=== PATIENT | female | born 1990 | race Asian ===

== ENCOUNTER 2019-05-13 04:54 | Observation (INO) | payer SELFPAY ==
[2019-05-13] MEDS ORDERED: Ondansetron INJ* 2 MG/ML VIAL IV ONE (05:02)
[2019-05-13] MEDS ORDERED: NS 0.9% 1000 ML** 1,000 ML IV ONE (05:02)
[2019-05-13] MEDS ORDERED: Ketorolac INJ* 30 MG/ML 1 ML VIAL IV PUSH ONE (05:02)
[2019-05-13] MEDS ORDERED: Morphine 4 MG/ML VIAL (1 ml) 4 MG/ML VIAL IV ONE ×4 (05:02→06:45)
--- NOTE | 2019-05-13 05:04 | ED ---
Abdominal Pain/Female - HPI Summary HPI Summary: The patient is a 28 y/o F arriving by ambulance to [facility] with a chief complaint of sudden onset sharp abdominal pain onset at 0400 this morning. She reports that the LLQ pain woke her up from her sleep and has been accompanied by nausea and vomiting. Currently, her symptoms are rated 10/10 in severity. She is currently 6 weeks and has not had blood work confirmation of . She denies any vaginal bleeding. A0. No PMHx. Nonsmoker, no EtOH, no substance use. Medications reviewed. Allergies noted. - History of Current Complaint Stated Complaint: ABD PAIN PER EMS Time Seen by Provider: 05/13/19 04:58 Hx Obtained From: Patient Onset/Duration: Sudden Onset, Lasting Minutes - since 0400, Still Present Timing: Minutes Severity Initially: Severe Severity Currently: Severe Pain Intensity: 10 Pain Scale Used: 0-10 Numeric Location: Discrete At: LLQ Radiates: No Character: Sharp Aggravating Factor(s): Nothing Alleviating Factor(s): Nothing Associated Signs and Symptoms: Positive: Nausea, Vomiting. Negative: Vaginal Bleeding Allergies/Adverse Reactions: Allergies Allergy/AdvReac Type Severity Reaction Status Date / Time No Known Allergies Allergy Verified 05/13/19 04:58 Home Medications: Home Medications Formula Tablet 1 tab PO DAILY 05/13/19 [History Confirmed 05/13/19] PMH/Surg Hx/FS Hx/Imm Hx Endocrine/Hematology History: Denies: Hx Diabetes Sensory History: Denies: Hx Deafness Opthamlomology History: Denies: Hx Legally Blind EENT History: Denies: Hx Deafness - Surgical History Surgical History: None Surgery Procedure, Year, and Place: none Infectious Disease History: No Infectious Disease History: Denies: Traveled Outside the [place] in Last 30 Days - Family History Known Family History: Negative: Diabetes - Social History Alcohol Use: None Hx Substance Use: No Substance Use Type: Reports: None Hx Tobacco Use: No Smoking Status (MU): Never Smoked Tobacco Review of Systems Positive: Abdominal Pain - LLQ, Vomiting, Nausea Positive: other - Negative: vaginal bleeding. All Other Systems Reviewed And Are Negative: Yes Physical Exam - Summary Physical Exam Summary: Appearance: Well-nourished, Colickly, Uncomfortable-appearing woman, In obvious discomfort, Vital signs noted to be unremarkable Skin: Warm, dry, no obvious rash Eyes: sclera anicteric, no conjunctival pallor ENT: mucous membranes moist, pharynx appears normal Neck: Supple, nontender Respiratory: Clear to auscultation, no signs of respiratory distress Cardiovascular: Normal S1, S2. No murmurs. Normal distal pulses in tibial and radial bilaterally. Abdomen: Soft, Diffuse abdominal tenderness likely secondary to patient apprehension, No rebound or guarding, normal active bowel sounds present Musculoskeletal: Normal, Strength/ROM Intact Neurological: A&Ox3, awake and alert, mentation is normal, speech is fluent and appropriate Psychiatric: affect is normal, does not appear anxious or depressed Triage Information Reviewed: Yes Vital Signs Reviewed: Yes Diagnostics - Laboratory Result Diagrams: 05/13/19 05:22 05/13/19 05:22 Lab Statement: Any lab studies that have been ordered have been reviewed, and results considered in the medical decision making process. Re-Evaluation - Re-Evaluation First Eval Re-Evaluation Time: 05:27 Change: Unchanged Comment: Pt continues to be in pain. Second Eval Re-Evaluation Time: 05:45 Change: Unchanged Comment: Pt continues to be in pain. Third Eval Re-Evaluation Time: 06:14 Change: Unchanged Comment: Pt continues to be in pain. Fourth Eval Re-Evaluation Time: 06:45 Change: Unchanged Comment: Pt continues to be in pain. Results and plan discussed with pt. Abdominal Pain Fem Course/Dx - Course Course Of Treatment: Pt is a 28 y/o F with cc of sudden onset severe LLQ pain beginning an hour [employer] accompanied by nausea and vomiting. First at 6 weeks confirmed by her doctor. Upon physical exam, the pt appears to be colickly and uncomfortable in obvious discomfort with unremarkable vital signs exhibiting diffuse abdominal tenderness secondary to pt apprehension without rebound or guarding. In the ED course, the pt was administered fluids, Zofran, Morphine, and Ketorolac. Blood work reveals hgb 11.8, MCV 79, MCH 26, carbon dioxide 19, BUN/Creatinine 23.2, glucose 114, and [place] [address]. Transvaginal US will be ordered. Pts pain continues and is given additional Morphine totaling 20mg. Radiology reports possibility of ovarian torsion previous to official report. I consulted with Dr. Foote, [employer], who will come see the pt in the ED. The patient is a sign-out from Dr. Mt Montaño MD, to Dr. Alan Ramos MD, at change of shift at 0700 on 05/13/19, pending Transvaginal US results, [employer] consult in ED, and disposition. Patient is a sign-out to Dr. Alan Ramos MD, at change of shift 0700 on 05/13/19, pending Transvaginal US, [employer] consultation in ED, and disposition. - Diagnoses Differential Diagnosis: Positive: Other - ovarian torsion, corpus luteum cyst, kidney stone Provider Diagnoses: Ovarian torsion - Provider Notifications Discussed Care Of Patient With: Jean Foote - [employer] Time Discussed With Above Provider: 06:48 Instructed by Provider To: Other - I discussed pt's case with Dr. Foote, and he will come see the pt in the ED. Discharge ED - Sign-Out/Discharge Documenting (check all that apply): Sign-Out Patient Signing out patient TO: Alan Ramos Patient Received Moderate/Deep Sedation with Procedure: No - Discharge Plan Condition: Stable Disposition: ADMITTED TO [facility] - Billing Disposition and Condition Condition: STABLE Disposition: Admitted to [facility] - Attestation Statements Document Initiated by Franklin: Yes Documenting Scribe: Astrid Clarke Provider For Whom Franklin is Documenting (Include Credential): Dr. Mt Montaño MD Scribe Attestation: Astrid Morris scribed for Dr. Mt Montaño MD on 05/14/19 at 0658. Scribe Documentation Reviewed: Yes Provider Attestation: The documentation as recorded by the Astrid cornejo accurately reflects the service I personally performed and the decisions made by me, Dr. Mt Montaño MD Status of Scribe Document: Viewed
[2019-05-13 05:30] LABS: ABS Basophils 0.1 10^3/ul (0-0.2); ABS Eosinophils 0.3 10^3/ul (0-0.6); ABS Lymphocytes 2.4 10^3/ul (1.0-4.8); ABS Monocytes 0.7 10^3/ul (0-0.8); ABS Neutrophils 6.9 10^3/ul (1.5-7.7); Eosinophil % 2.8 %; Hematocrit 36 % (35-47); Hemoglobin 11.8 g/dL (12.0-16.0); Lymphocyte % 23.2 %; Mean Corpuscular HGB Conc 33 g/dL (31-36); Mean Corpuscular Hemoglobin 26 pg (27-31); Mean Corpuscular Volume 79 fL (80-97); Mean Platelet Volume 8.2 fL (7.4-10.4); Nucleated Red Blood Cells % 0.1; Platelet Count 229 10^3/uL (150-450); Red Blood Count 4.51 10^6 /uL (3.70-4.87); Red Cell Distribution Width 14 % (10-15); White Blood Count 10.3 10^3/uL (3.5-10.8)
[2019-05-13 05:47] LABS: Albumin 3.7 g/dL (3.2-5.2); Albumin/Globulin Ratio 1.8 (1-3); BUN/Creatinine Ratio 23.2 (8-20); Calcium 8.6 mg/dL (8.6-10.3); EGFR African American 122.6 (>60); EGFR Non-African American 101.3 (>60); Globulin 2.1 g/dL (2-4); Potassium 3.7 mmol/L (3.5-5.0); Total Bilirubin 0.5 mg/dL (0.2-1.0); Total Protein 5.8 g/dL (6.4-8.9)
[2019-05-13] MEDS ORDERED: Morphine 4 MG/ML VIAL (1 ml) 4 MG/ML VIAL IV PRN (06:14)
--- NOTE | 2019-05-13 07:16 | ED ---
Progress - Progress Note Progress Note: Patient is a sign out upon shift change at 0700 on 05/13/[address] Montaño to Dr. Ramos. Patient is pending RO[facility] consult from Dr. Foote as well as Transvaginal US results and disposition. - Results/Orders Results/Orders: Transvaginal Ultra Sound reveals, per radiologist, 1. Concern for left ovarian torsion given the abnormal size, grayscale appearance and position of the left ovary. No reliable arterial or venous waveforms could be detected on this side. 2. Early intrauterine with an estimated gestational age of 6 weeks 5 days. ED Physician has reviewed this report. Re-Evaluation - Re-Evaluation First Eval Comment: Pt continues to be in pain. Course/Dx - Course Course Of Treatment: Patient is a sign out upon shift change at 0700 on 05/13/[address] Montaño to Dr. Ramos. Patient is pending ROAD CUTTER consult from Dr. Foote as well as Transvaginal US results and disposition. At 724 Dr. Ramso consulted with Dr. Foote about patient. Dr. Foote recommends that patient be admitted and brought to the OR. Transvaginal Ultra Sound reveals, per radiologist, 1. Concern for left ovarian torsion given the abnormal size, grayscale appearance and position of the left ovary. No reliable arterial or venous waveforms could be detected on this side. 2. Early intrauterine with an estimated gestational age of 6 weeks 5 days. ED Physician has reviewed this report. . This patient was signed out to Dr. Rivera at shift change. The patient is awaiting for Dr. Todd from RO[facility] pulses the patient. He came and assessed the patient and he is going to take the patient to the dalal. The patients hemoglobin after stable alert and oriented 3. - Diagnoses Provider Diagnoses: Ovarian torsion - Provider Notifications Discussed Care Of Patient With: Jean Foote - Obstetrics and Gynecology Time Discussed With Above Provider: 07:25 Instructed by Provider To: Other - 724 Dr. Ramos consulted with Dr. Foote about patient. Dr. Foote recommends that patient be admitted and brought to the OR. Discharge ED - Sign-Out/Discharge Documenting (check all that apply): Patient Departure - admitted, Receiving Sign -Out - Patient is a sign out upon shift change at 0700 on 05/13/[address] Montaño to Dr. Ramos. Patient is pending ROAD CUTTER consult from Dr. Foote as well as Transvaginal US results and disposition. Signing out patient TO: Alan Ramos - ED Physician Receiving patient FROM: Mt Montaño - ED Physician Patient Received Moderate/Deep Sedation with Procedure: No - Discharge Plan Condition: Stable Disposition: ADMITTED TO [facility] - Billing Disposition and Condition Condition: STABLE Disposition: Admitted to [facility] - Attestation Statements Document Initiated by Franklin: Yes Documenting Scribe: Margarita Wheeler Provider For Whom Franklin is Documenting (Include Credential): Dr. Alan Ramos MD Scribe Attestation: Margarita Morris scribed for Dr. Alan Ramos MD on 05/21/19 at 1200. Scribe Documentation Reviewed: Yes Provider Attestation: The documentation as recorded by the Margarita cornejo accurately reflects the service I personally performed and the decisions made by me, Dr. Alan Ramos MD Status of Scribe Document: Viewed
[2019-05-13] MEDS ORDERED: fentaNYL* 50 MCG/ML 2 ML VIAL (100 MCG VIAL) ONE (07:42)
[2019-05-13] MEDS ORDERED: KETAMINE HCL* 50 MG/ML 10 ML VIAL ONE (07:42)
[2019-05-13] MEDS ORDERED: Atracurium* 10 MG/ML 10 ML VIAL ONE (07:42)
[2019-05-13] MEDS ORDERED: ceFOXitin 2 GM IVPREMIX* 2 GM/50 ML BAG ONE (08:00)
[2019-05-13] MEDS ORDERED: oxyCODONE TAB* 5 MG TAB PO PRN (08:42)
[2019-05-13] MEDS ORDERED: Naloxone* 0.4 MG/ML 1 ML VIAL IV PRN (08:42)
[2019-05-13] MEDS ORDERED: HYDROmorphone INJ1* 1 MG/ML SYRINGE IV PRN (08:42)
[2019-05-13] MEDS ORDERED: fentaNYL* 50 MCG/ML 2 ML VIAL (100 MCG VIAL) IV PRN (08:42)
[2019-05-13] MEDS ORDERED: Scopolamine 1.5 mg* PATCH TRANSDERM PRN (08:42)
[2019-05-13] MEDS ORDERED: Dexamethasone IV* 4 MG/ML 1 ML (4 MG) ONE (08:58)
[2019-05-13] MEDS ORDERED: Glycopyrrolate IV* 0.2 MG/ML 1 ML VIAL ONE (08:58)
[2019-05-13] MEDS ORDERED: Neostigmine Methylsulfate* 1 MG/ML 10 ML VIAL (1 mg/ml) ONE (08:58)
[2019-05-13] MEDS ORDERED: EPHEDrine (Pressors)* 50 MG/ML VIAL ONE (08:58)
[2019-05-13] MEDS ORDERED: Propofol* 10 MG/ML 20 ML BTL ONE (08:58)
[2019-05-13] MEDS ORDERED: oxyCODONE/Acetamin 5/325 MG* TAB PO PRN (09:33)
[2019-05-13] MEDS ORDERED: Bupivacaine 0.5%* 50 ML MDV VIAL ONE (09:47)
[2019-05-13] MEDS: Lactated Ringers 1000 ML Bag* 1,000 ML IV SCH ×3 (10:56→22:59)
[2019-05-13] MEDS ORDERED: Progesterone MICRONIZED(NF) 200 MG CAP PO SCH (14:00)
[2019-05-14] MEDS: Lactated Ringers 1000 ML Bag* 1,000 ML IV SCH (06:52)
[2019-05-14 07:49] VITALS: BP 98/58
--- NOTE | 2019-05-14 09:08 | PN ---
Progress Note - Progress Note Date of Service: 05/14/19 Note: Patient is POD#1 s/p laparoscopy and detorsion of torsed ovary. She initially presented to the Emergency department with abdominal pain and was found to have an SIUP with yolk sac and CRL measuring 3mm, too early to see cardiac activity and a Left Ovarian Cyst measuring 7x7.8x7cm and suspicious for torsion. She was taken to the OR where the ovary was found to be torsed x 2 and successfully detorsed, an additional paratubal cyst was removed as well, please see Dr. Foote's Operative report once dictated for details. Post operatively she has done well and has no complaints at this time. She reports that she does have "surgical pain" at the incision sites, but she no longer has the abdominal pain which she initially presented with prior to surgery. AVSS, afebrile, hemodynamically stable. BP 98/58 Pusle 55 RR 14, O2 Saturation 99 T 99.5 Gen: nad, aaox3 CV: RRR Pulm: non-labored respirations, CTABL Abd: soft, nd, appropriately ttp at incision sites, incision sites x 2 with dry and clean bandages Ext: warm, nttp A/P: 28 y/o with Ovarian torsion in the setting of SIUP, status post successful detorsion via Laparoscopy: - Doing well this AM - Stable for discharge home with close follow up in the outpatient setting, will see pt in office before the end of the week and schedule f/u viability sono in 7-10 days. - Will continue prometrium previously started - Torsion precautions carefully reviewed with patient - Light activity/modified bedrest until seen again in office later this week. Geovani Valerio DO OBOLIVIA
--- NOTE | 2019-05-15 00:28 | OP ---
DATE OF OPERATION: 05/13/19 - ROOM #332 DATE OF : [birth year] SURGEON: Jean Foote MD. C DEVELOPER: Dr. Kurtz.* ANESTHESIA: General anesthetic with an endotracheal intubation. PRE-OP DIAGNOSIS: at 6 weeks, estimated gestational age by ultrasound and an 8 cm enlarged left ovarian torsion and an acute abdomen. POST-OP DIAGNOSIS: at 6 weeks, estimated gestational age by ultrasound and an 8 cm enlarged left ovarian torsion and an acute abdomen. OPERATIVE PROCEDURE: Laparoscopic ovarian detorsion. ESTIMATED BLOOD LOSS: None. SPECIMEN SENT TO PATHOLOGY: Left paratubal cyst. FLUIDS: She received 1200 cc of IV crystalloid fluid and urine output was 100 cc of clear urine. FINDINGS: Laparoscopically revealed a large 8-cm hyperemic left ovarian torsion with a left paratubal cyst. Otherwise, normal left tube. Normal uterus. Normal right tube and ovary, and normal bowel and bladder. There were no complications. DESCRIPTION OF PROCEDURE: The patient was taken to the operating room where she was identified. She was placed on the operating table where general anesthetic was obtained without difficulty with endotracheal intubation. She was then placed in the dorsal lithotomy position, prepped and draped in normal sterile fashion to the patient's perineum where a Healy catheter was inserted and the bladder was drained of clear urine. We then proceeded to the patient's abdomen where a 1-cm infraumbilical skin incision was made with a knife and carried through to the underlying layer of fascia. The fascia was then grasped with Tomas clamps, brought up to the incision and incised medially. Entry through the peritoneum was confirmed using a Ame clamp. The Tomas and the fascia were replaced with 0 Polysorb suture. Through this incision, a 5-mm blunt trocar was introduced. The balloon trocar was insufflated with air. We then proceeded to insufflate the patient's abdomen with CO2 gas. A 5-mm hook was introduced through the trocar. A survey of the patient's pelvic anatomy revealed findings as noted above. At this point, I proceeded to detorse the ovarian pedicle. Once that was done, I noted a left paratubal cyst. The pedicle to the fallopian tube was grasped with a cautery instrument. The pedicle was cauterized and cut, removed and sent to Pathology. I then proceeded to irrigate the patient's abdomen. The irrigation fluid was removed. There was no bleeding. We then proceeded to remove all the instruments from the patient's abdomen as well as the air. The fascia of the umbilicus was closed with 0 Polysorb suture in a running fashion and the skin incision in the umbilicus, in 1 incision that was made 4 cm above symphysis pubis under direct visualization, was closed with 4-0 Monocryl stitches subcuticularly. The patient tolerated the procedure well. Sponge, lap, and needle counts were correct x2. She was then transferred to the recovery room area in stable condition. [id number]/[facility] #: [id number] MTDD
[2019-05-16] MEDS ORDERED: Scopolamine PATCH Remove* 1 NOTE MISC PATCH OFF ONE (08:43)
--- NOTE | 2019-05-18 12:09 | DS ---
DISCHARGE SUMMARY Patient: Andie Collins Age: 28 y/o 1990 Date of Admission 05/13/2019 Date of Discharge 05/14/2019 Admission Diagnosis: Early SIUP, Ovarian Cyst, Ovarian Torsion Discharge Diagnosis: same, s/p Laparoscopy, detorsion of ovary and cyst HPI: Patient is a 28 y/o G1 who presented to the ED with severe abdominal pain. USN identified an early SIUP, measurements consistent with the 6th week and an 8cm ovarian mass with imaging consistent with ovarian torsion. The patient was taken to the OR where laparoscopy was performed and the ovary and cyst were successfully detorsed. Additionaly a paratubal cyst was removed. The patient remained in the hospital overnight for one night of observation. She remained stable with resolved abdominal pain s/p detorsion and was stable for discharge home on the morning of POD#1. PMH - non-contributory PSH - non-contributory Medications reviewed: Continue: Vitamin daily Prometrium daily Activity: modified bed rest until re-assessed and cleared at end of week Follow up in office before the end of the week for re-assessment. Pain and re-torsion precautions carefully reviewed. Disposition: Home Condition: Stable DO ROGER Maddox
== END 2019-05-14 11:23 | disposition home or self-care (01) ==
LOC: ED 04:54 → OR 08:12 → SSU 10:55
PROVIDERS: ADMIT Obstetrics & Gynecology; ATTEND Obstetrics & Gynecology
DX: O34.81 Maternal care for other abnormalities of pelvic organs, first trimester (principal); N83.292 Other ovarian cyst, left side; R11.2 Nausea with vomiting, unspecified; Z3A.01 Less than 8 weeks gestation of pregnancy; N83.512 Torsion of left ovary and ovarian pedicle; Z79.899 Other long term (current) drug therapy
CPT/HCPCS: 36415; 76817; 80053; 84702; 85025; 86850; 86900; 86901; 88304; 96361; 96374; 96375; 96376; 99284; A9270-GY; G0378; J0694; J1100; J1885; J2270; J2405; J2704; J2710; J3010; J3490